=== PATIENT | male | born 2000 | race African-American/Black ===

== ENCOUNTER 2021-01-20 17:35 | Day surgery (SDC) | payer SELFPAY ==
[~2021-01-20 17:35] MED LIST: Dexamethasone 20 MG/5 ML VIAL ONE; Ketorolac Tromethamine 30 MG/ML VIAL ONE; Ondansetron PF 4 MG/2 ML Vial ONE; PROPOFOL 200 MG/20 ML VIAL ONE
--- NOTE | 2021-01-20 18:12 | ULT ---
Exam: Testicular ultrasound HISTORY: Right testicular pain, x3 hours COMPARISON: None TECHNIQUE: Sagittal and transverse imaging of the left and right hemiscrotum are performed. Testicula r Doppler is performed with grayscale, color-flow, Doppler imaging and spectral waveform analysis. FINDINGS: Right hemiscrotum: Testicle: Slightly heterogeneous echotexture. Punctate calcifications are present. Right testicle measurements: 2.4 x 3.4 x 1.7 Right epididymis: Normal echotexture. Right epididymis measurements: 0.8 x 1.3 cm Hydrocele: None Left hemiscrotum: Left testicle: Which is echotexture. No intratesticular mass. Punctate calcifications are identified. Left testicle measurements: 3.3 x 1.9 x 2.0 cm Left epididymis: Normal echotexture. Left epididymis measurements:0.9 x 0.6 cm Hydrocele: None Testicular Doppler: There is vascular flow to the left testicle. Absent flow to the right testicle. IMPRESSION: 1. Right testicular torsion. Absent flow to the right testicle Findings conveyed to Holly Shah 01/20/2021 at 6:09 PM Code CR
[2021-01-20] MEDS ORDERED: Bupivacaine 0.25% HCL 30 ML VIAL ONE (19:33)
[2021-01-20] MEDS ORDERED: Fentanyl 250 MCG/5 ML VIAL ONE (19:35)
[2021-01-20] MEDS ORDERED: Midazolam HCl 2 mg/2 ml Vial ONE ×2 (19:35→20:39)
[2021-01-20] MEDS ORDERED: Levofloxacin 500 mg/D5W 100 ml Premix Bag ONE (20:00)
[2021-01-20 20:11] LABS: SARS-CoV-2 NAA Rapid Test Not Detected (NotDetected)
[2021-01-20] MEDS ORDERED: Neomycin-Polymyxin 1 ML AMP ONE (20:37)
[2021-01-20] MEDS ORDERED: HYDROmorphone 2 MG/ML VIAL ONE (20:39)
[2021-01-20] MEDS ORDERED: Bacitracin Zinc Ointment 30 gm TUBE ONE (20:43)
[2021-01-20] MEDS ORDERED: traMADol HCl 50 MG TAB ONE (21:33)
--- NOTE | 2021-01-20 22:54 | OP ---
DATE OF PROCEDURE: 01/20/2021 PREOPERATIVE DIAGNOSIS: Right testicular torsion. POSTOPERATIVE DIAGNOSIS: Right testicular torsion. PROCEDURES: 1. Bilateral scrotal exploration. 2. Bilateral orchidopexy. 3 reduction of right testicular torsion 4. Intraoperative Doppler ultrasound ANESTHESIA: LMA general. ESTIMATED BLOOD LOSS: Minimal. COMPLICATIONS: None apparent. DISPOSITION: To recovery room in stable condition. INDICATIONS FOR THE PROCEDURE AND HISTORY: Mr. Brown is a 20-year-old male, who presented with acute onset of right testicular discomfort that began around 1:00 p.m. this afternoon. He presented to the emergency room and a scrotal ultrasound demonstrated no evidence of flow to the right testicle, and he was taken emergently to the OR for scrotal exploration. The patient was advised regarding possible risk of orchiectomy, chronic pain, infection, hematoma, hydrocele, anti-sperm formation, possible infertility, chronic pain. All questions answered to his satisfaction and he desired to proceed without reservation. DESCRIPTION OF PROCEDURE: After an informed consent was signed, the patient was taken to the operating room, placed in a dorsal lithotomy position with the genital area prepped and draped in the usual surgical sterile fashion. The patient was placed in a supine position and a midline scrotal incision was made. The patient has baseline physical exam demonstrating mild bilateral testicular atrophy. A median raphae incision was utilized with a 15 blade. The dartos fascia was opened to the limits of skin incision. The right testicle was delivered first. The cord structures were identified to the level of the external ring. Patient underwent manual detorsion by the emergency room. Inspection of the cord structures in the right demonstrates mild twisting of the cord structures 120 degrees. This was reduced. The testicle appeared pink and viable, and Doppler was performed demonstrating good flow to the right testes. We performed a three-point fixation using 4-0 Prolene and a taper needle. Three-point fixation was performed. We then explored a left hemiscrotum delivering the left testicle and three-point fixation of the left testicle was performed in a similar fashion. The dartos fascia was closed with 3-0 Vicryl in a continuous fashion. Skin was closed with 2-0 and 3-0 chromic in a vertical mattress fashion. He tolerated the procedure well with minimal blood loss. The patient will be discharged with tramadol p.r.n. for pain, short course of Bactrim for antibiotic prophylaxis, and will follow up with me in the next 2 days for postoperative assessment. Job ID: [id number] MTDD
--- NOTE | 2021-01-21 00:15 | CON ---
DATE OF CONSULTATION: 01/20/2021 REASON FOR CONSULTATION: Right testicular torsion. HISTORY OF PRESENT ILLNESS: Mr. Brown is a 20-year-old male, accompanied by his mother, pain in the right testicle, began 1 o'clock acutely. The patient has episode of emesis, presented to the emergency room. A scrotal ultrasound was obtained demonstrating right testicular torsion with absent flow to the right testicle. Left testicle is unremarkable with vascular flow. The patient denies prior events, denies trauma. ER physician attempted to manually detorse with some improvement of the testicular discomfort; however, he continues to have discomfort. PAST MEDICAL HISTORY: Includes asthma, bronchitis, reflux esophagitis. SURGICAL HISTORY: None. PSYCHIATRIC: None. SOCIAL HISTORY: History of alcohol abuse, about 10 drinks per day per ER note, beer; history of marijuana abuse. Denies IV drug abuse, hepatitis C, HIV. ALLERGIES: ALLERGIC TO AMOXICILLIN, ANAPHYLAXIS. PEANUT ALLERGY. CURRENT MEDICATIONS: Include: 1. Fludrocortisone. 2. ProAir. 3. Dulera. 4. Albuterol. PHYSICAL EXAMINATION: VITAL SIGNS: 140/85, 85, 16, 98. Pain is rated 8/10 on the pain scale. HEENT: Grossly unremarkable. HEART: Regular rate. GENERAL: Mother at bedside and patient in some distress. HEART: Regular rate. LUNGS: Clear. ABDOMEN: Soft, nontender, nondistended. No CVA tenderness. : Demonstrates left testicle in normal lie, right testicle is in transverse lie with discomfort. Abnormal cremasteric reflexes noted. EXTREMITIES: No cyanosis, clubbing, or edema. NEUROLOGIC: No gross focal deficits. SKIN: No lesions seen. PSYCHIATRIC: Appears to be appropriate and intact. IMAGING: Scrotal ultrasound, which I personally reviewed, demonstrates no flow to the right testicle, right testicle measures 2.4 x 3.4 x 1.7 cm with punctate calcification. Left testicle measures 3.3 x 1.9 x 2.0 cm. Per my physical exam, his testes bilaterally are somewhat atrophic. IMPRESSION AND PLAN: Mr. Brown is a 20-year-old male with right testicular torsion with absent flow to the right testes. The patient and mother informed regarding emergent exploration, bilateral orchiopexy. As we are encroaching 6 hours of ischemia time, possibility of right orchiectomy has been discussed with the patient and mother in detail. Alternative options including observation reviewed. Possibility of anti-sperm antibodies resulting in infertility despite intervention, chronic pain, hematoma, surgical complication discussed with patient and mother in detail, and they desired to proceed. History of alcohol abuse History of marijuana abuse; patient advised regarding cessation of substance abuse, patient advised that chronic marijuana use can cause testicular atrophy. Mother at bedside. Job ID: [id number] MTDD
== END 2021-01-20 22:15 | disposition home or self-care (01) ==
LOC: ERS 17:35 → SDC/OP 19:47
PROVIDERS: ATTEND Urology
PROC: 0VQC0ZZ Repair Bilateral Testes, Open Approach (ICD-10-PCS; principal; 2021-01-20)
DX: N44.00 Torsion of testis, unspecified (principal); F17.290 Nicotine dependence, other tobacco product, uncomplicated; K21.00 Gastro-esophageal reflux disease with esophagitis, without bleeding; J45.909 Unspecified asthma, uncomplicated; F12.11 Cannabis abuse, in remission; F10.11 Alcohol abuse, in remission; Z79.51 Long term (current) use of inhaled steroids; Z88.0 Allergy status to penicillin; Z91.010 Allergy to peanuts; Z20.822 Contact with and (suspected) exposure to COVID-19
CPT/HCPCS: 76870; 93976; 94640; J1100; J1170; J1885; J1956; J2250; J2405; J2704; J3010; J7620; S0020; U0002